=== PATIENT | female | born 1960 | race Caucasian/White ===

== ENCOUNTER → 2018-09-15 | Day surgery (SDC) | payer OTHER ==
[~2018-09-15] MED LIST: ASPIR 8181 MG PO; BIOTIN10 MG PO; CARDIZEM CD120 MG PO; MINOCIN50 MG PO; NITRO-BID1 GM TOP; NORCO 5-325 TA1 EACH PO; OMEPRAZOLE 20 M20 M1 PO; OXYBUTYNIN 5 MG5 M2 PO; VITAMIN D1000 UNI1 PO
[2018-09-15 10:35] LABS: HEMATOCRIT 43.5 % (37.0-47.0); HEMOGLOBIN 14.2 gm/dL (12.0-15.0); MCH 29.5 pg (26.0-34.0); MCHC 32.7 g/dL (28.0-37.0); MCV 90.3 fL (80.0-100.0); MPV 8.2 fl. (7.2-11.1); RBC 4.82 mil/uL (4.20-5.00); RDW-CV 13.5 % (10.5-14.5); WBC 6.7 thou/uL (4.0-11.0)
[2018-09-15 10:43] LABS: CALCIUM 8.8 mg/dL (8.5-10.1); CREATININE 0.9 mg/dL (0.6-1.3); POTASSIUM 4.2 mmol/L (3.5-5.1)
[2018-09-15 11:16] LABS: APTT 25.9 Seconds (25.0-31.3); PROTIME 10.2 Seconds (9.20-11.50)
--- NOTE | 2018-09-15 11:39 | EKG ---
[place] [address] ELECTROCARDIOGRAM REPORT Name: NANCY LARIOS Room: [facility]#: [id number] Admission: 09/15/18 Attend Phys: Ruba Dougherty DO Discharge: Date of : 62 Report #: [id number] THIS REPORT FOR: //name// [facility] Test Date: 2018-09-15 Test Time: 10:33:34 Pat Name: NANCY LARIOS Department: Room: Gender: F Drag Out Man: : 1960 Requested By: Ruba Dougherty Order Number: [id number] Reading MD: Mynor Jorgensen Measurements Intervals [place] Rate: 62 P: 43 MD: 138 QRS: 67 QRSD: 96 T: -43 QT: 465 QTc: 473 Interpretive Statements Sinus rhythm Abnrm T, consider ischemia, anterolateral lds No previous ECG available for comparison Electronically Signed On 09-15-2018 11:38:49 [employer]ITION WORK[employer] by Mynor Jorgensen [email or web address] <ELECTRONICALLY SIGNED> By: Mynor Jorgensen MD, [facility] 09/15/18 1138 1033 1033 Mynor Jorgensen MD, FACC /EPI
--- NOTE | 2018-09-19 15:35 | OP ---
[address] [address] OPERATIVE REPORT Name: NANCY LARIOS Room: [facility].#: [id number] Admission: 09/15/18 Attend Phys: Ruba Dougherty DO Discharge: Date of : 62 Report #: [id number] THIS REPORT FOR: //name// CC: Fina Dougherty [facility] DATE OF SERVICE: 09/15/2018 PREOPERATIVE DIAGNOSIS: Bilateral upper extremity subcutaneous masses. POSTOPERATIVE DIAGNOSIS: Bilateral upper extremity subcutaneous masses. PROCEDURE: Excision of bilateral upper extremity subcutaneous masses. SURGEON: Ruba Dougherty DO ANESTHESIA: General endotracheal. SPECIMENS: 1. Left arm subcutaneous mass (1.7 x 1.2 x 0.8 cm). 2. Right arm subcutaneous mass (2 x 1.5 x 0.5 cm). ESTIMATED BLOOD LOSS: 25 mL. COMPLICATIONS: None. INDICATIONS FOR PROCEDURE: The patient is a 58-year-old female who presented to my office with a history of CREST syndrome. The patient has bilateral forearm subcutaneous calcifications, which is becoming increasingly enlarging and more symptomatic over the past several years. The patient desires surgical excision. The patient was explained the procedure including risks, benefits and alternatives. All questions were answered to the patient's satisfaction and informed consent was obtained. DESCRIPTION OF PROCEDURE: After the patient was brought back to the operating room and placed in supine position, general anesthesia was induced, SCDs were placed on bilateral lower extremities and prophylactic antibiotics were administered. The bilateral arms were then placed on arm boards and prepped and draped in usual sterile fashion. After a timeout was performed, attention was first turned to the left upper arm. There was a mass that was previously marked in the preoperative holding bay. An elliptical incision was created around this mass and using a 15 blade scalpel, the subcutaneous tissues were dissected free around what felt to be the calcification. There was noted to be some involvement of the fascia down to the level of the muscle without actual involvement of the muscle. Once the mass was freed in [place] entirety [place] [address] OPERATIVE REPORT Name: NANCY LARIOS Room: [facility]#: [id number] Admission: 09/15/18 Attend Phys: Ruba Dougherty DO Discharge: Date of : 62 Report #: [id number] subcutaneous tissues, the pressure was held. The mass was measured at 1.7 x 1.2 x 0.8 cm in size and was passed off the field as specimen. Bovie cautery was used to ensure hemostasis. A 0.5% Marcaine was injected into the subcutaneous tissues. Hemostasis was again noted to be achieved. The skin was then closed in a layered fashion using a 3-0 Vicryl in a deep dermal stitch and a 4-0 Monocryl in a subcuticular manner. The area was cleaned and Dermabond was applied for sterile dressing. Next, attention was turned towards the right forearm. There was a separate subcutaneous nodule that was marked in the preoperative holding area. Using a 15 blade scalpel, an elliptical incision was created around the palpable mass. Dissection was carried out through the skin and subcutaneous tissues using a 15 blade scalpel and once freed in its entirety, the base of the wound was noted to have the fascia intact and therefore pressure was held. The mass measured 1.5 x 2 x 0.5 cm in size. Bovie cautery was used to achieve hemostasis. Local anesthetic was infiltrated into the subcutaneous tissues. The skin was closed in a similar fashion with a 3-0 Vicryl in a deep interrupted manner and a 4-0 Monocryl in subcuticular fashion. The area was cleaned and Dermabond was applied for sterile dressing. The patient tolerated the procedure well without any complications. All sponge, needle and instrument count was reported as correct at the end of the case. The patient was awakened from anesthesia in the operating room and taken to the PACU in stable condition for further recovery. <ELECTRONICALLY SIGNED> By: Ruba Dougherty DO 09/19/18 1535 1312 [id number] Dougherty DO /nt
--- NOTE | 2018-09-20 11:07 | PATH ---
[address] [place] [address] PATHOLOGY RPT PROCEDURE Name: NANCY LARIOS Room: [facility].#: [id number] Admission: 09/15/18 Date of : 62 Discharge: Report #: [id number] Path Case #: [id number] [facility] Accession Number: [id number] . 01 Material submitted: . PART A: LEFT ARM SUB-Q MASS PART B: RIGHT ARM SUB-Q MASS . 01 Clinical history: . Calcium deposits, Crest syndrome . 02 Diagnosis: A. Skin, "left arm subcutaneous mass", excision: - Portion of skin with extensive subcutaneous calcification. . B. Skin, "right arm subcutaneous mass", excision: - Portion of skin with extensive subcutaneous calcification. (SKM:kayla 09/17/2018) QTP/09/17/2018 . 02 Electronically signed: . Vic Mora MD, Pathologist NPI- [id number] . 01 Gross description: . A. The specimen is received in formalin, labeled "Nancy Larios, left arm subcutaneous mass". Received is of pale estrada skin with attached underlying soft tissue measuring 1.6 x 0.8 x 0.8 cm in greatest dimensions. The surgical margin is inked. Sectioning reveals a calcified nodule measuring 0.5 cm in maximum dimensions. The specimen is entirely submitted in cassette A1, following light decalcification. . B. The specimen is received in formalin, labeled "Nancy Larios, right arm subcutaneous mass". Received is an ellipse of pale-estrada skin with attached underlying firm soft tissue measuring 2.2 x 1.0 x 1.2 cm in greatest dimensions. Sectioning reveals a partially calcified nodule measuring 0.8 cm in maximum dimensions. The specimen is submitted entirely in cassette B1, following light decalcification. (CAA; 09/16/2018) QAC/QAC . 02 Pathologist provided ICD-10: L98.8 . 02 CPT . 243231, [id number] Specimen Comment: A courtesy copy of this report has been sent to Specimen Comment: [phone], , [place] [address] PATHOLOGY RPT PROCEDURE Name: NANCY LARIOS Room: [facility]#: [id number] Admission: 09/15/18 Date of : 62 Discharge: Report #: [id number] Path Case #: [id number] Specimen Comment: Report sent to , and Specimen Comment: A duplicate report has been generated due to demographic updates. Performed at: [address], [place] [id number] MD Fuad Alicea MD Phone: [phone] Performed at: 02 [facility] [address], [place], [place] [id number] MD Artem Oates MD Phone: [phone]
== END | disposition home or self-care (01) ==
LOC: M.SUR 09:40
PROVIDERS: Surgery
DX: L98.8 Other specified disorders of the skin and subcutaneous tissue (principal); M34.1 CR(E)ST syndrome; Z79.82 Long term (current) use of aspirin; Z79.899 Other long term (current) drug therapy; Z98.890 Other specified postprocedural states; Z79.891 Long term (current) use of opiate analgesic; Z85.3 Personal history of malignant neoplasm of breast; Z86.718 Personal history of other venous thrombosis and embolism; Z79.01 Long term (current) use of anticoagulants